=== PATIENT | female | born 1960 | race Caucasian/White ===

== ENCOUNTER 2024-11-13 14:12 | Emergency (ER) | payer OTHER ==
[2024-11-13] MEDS ORDERED: NA CHLORIDE 0.9% 500 ML ONE (14:58)
[2024-11-13 15:15] LABS: Absolute Basophils 0.1 K/uL (0-0.5); Absolute Eosinophils 0.1 K/uL (0-0.5); Absolute Lymphocytes (CBC) 2.1 K/uL (0.7-4.9); Absolute Monocytes 0.6 K/uL (0.1-1.3); Absolute Neutrophil 3.6 K/uL (1.8-8.0); Basophils % 0.8 % (0-1.3); Eosinophils % 1.7 % (0-4.4); Hematocrit 40.2 % (36.0-45.0); Hemoglobin 12.8 g/dL (12.0-15.0); Lymphocytes % 32.6 % (15.3-44.8); MCH 25.6 pg (27.0-35.0); MCHC 31.8 g/dL (32.0-36.0); MCV 80.3 fL (80-100); MPV 8.5 fL (7.6-11.3); Monocytes % 9.2 % (3.3-12.3); Neutrophils % 55.7 % (41.7-73.7); Platelets 275 thou/uL (152-406); RBC Red Blood Cell Count 5.01 M/uL (3.86-4.86); Red Cell Distribution Width 13.9 % (12.1-15.2)
[2024-11-13 15:34] LABS: Albumin 3.5 g/dL (3.4-5.0); Anion Gap 8.2 mEq/L (5.0-15.0); Bilirubin Total 0.2 mg/dL (0.2-1.0); Globulin 3.4 g/dL (2.3-3.5); Protein, Total 6.9 g/dL (6.4-8.2)
[2024-11-13 15:35] LABS: Potassium 4.2 mEq/L (3.5-5.1)
[2024-11-13 16:44] LABS: Sqamous Epithelial <5 /HPF (None Seen); Urine Bacteria None Seen /HPF (<20); Urine Bilirubin NEGATIVE (Negative); Urine Blood Negative (Negative); Urine Clarity Turbid (Clear); Urine Color Light-Yellow (Yellow); Urine Culture Reflex Order NOT NEEDED; Urine Glucose NEGATIVE (Negative); Urine Ketones NEGATIVE (Negative); Urine Micro Reflex YN NO BILL MICROSCOPIC; Urine Mucus Slight /HPF (None Seen); Urine Nitrite NEGATIVE (Negative); Urine Protein NEGATIVE (Negative); Urine RBC <5 /HPF (None Seen); Urine Urobilinogen Normal (Normal); Urine WBC <5 /HPF (<5)
--- NOTE | 2024-11-13 17:02 | ER ---
Nurse's Notes [facility] Name: Robbin Mc Age: 64 yrs Sex: Female : 1960 Arrival Date: 11/13/2024 Time: 14:12 Bed 8 Private MD: Diagnosis: Weakness Presentation: 11/13 14:15 Chief complaint: EMS states: Generalized weakness and intermittent dizziness with hb blurred vision x 1 months. Pt stated "my trigeminal neuralgia is kicking my ass and it hurts so bad I can't eat or drink anything and it is making me feel so weak and fatigued since my stroke in August." BP 148/60, HR 68, SpO2 96% on RA, BGL 130. Coronavirus screen: At this time, the client does not indicate any symptoms associated with coronavirus-19. Ebola Screen: No symptoms or risks identified at this time. Initial Sepsis Screen: Does the patient meet any 2 criteria? No. Patient's initial sepsis screen is negative. Does the patient have a suspected source of infection? No. Patient's initial sepsis screen is negative. Risk Assessment: Do you want to hurt yourself or someone else? Patient reports no desire to harm self or others. Onset of symptoms was August 2024. 14:15 Method Of Arrival: EMS: [facility] hb 14:15 Acuity: MACIEJ 3 hb Historical: - Allergies: 14:18 Adhesives; hb 14:18 IV Contrast; hb 14:18 Dilaudid; hb 14:18 Unknown ABX; hb - PMHx: 14:18 Migraine; Asthma; HTN; CVA; hb - Immunization history:: Adult Immunizations up to date. - Infectious Disease History:: Denies. - Social history:: Smoking status: Patient denies any tobacco usage or history of. Screenin:00 [facility] ED Fall Risk Assessment (Adult) History of falling in the last 3 months, ko1 including since admission No falls in past 3 months (0 pts) Confusion or Disorientation No (0 pts) Intoxicated or Sedated No (0 pts) Impaired Gait No (0 pts) Mobility Assist Device Used No (0 pt) Altered Elimination No (0 pt) Score/Fall Risk Level 0 - 2 = Low Risk Oriented to surroundings, Maintained a safe environment, Educated pt \\T\\ family on fall prevention, incl call for assistance when getting out of bed, Assessed \\T\\ reinforced patient's understanding of fall precautions, Hourly rounding (assess needs \\T\\ fall precautionary measures) done. Abuse screen: Denies threats or abuse. Denies injuries from another. Nutritional screening: No deficits noted. Tuberculosis screening: No symptoms or risk factors identified. Assessment: 15:00 General: Appears in no apparent distress. Behavior is cooperative, appropriate for age, ko1 anxious. Pain: Complains of pain in base of the skull and left base of the skull. Neuro: No deficits noted. Cardiovascular: No deficits noted. Respiratory: No deficits noted. GI: No deficits noted. : No deficits noted. EENT: No deficits noted. Derm: No deficits noted. Musculoskeletal: Reports pain in neck. Vital Signs: 14:15 BP 167 / 92; Pulse 69; Resp 16; Temp 98.2; Pulse Ox 97% on R/A; Weight 95.25 kg; Height hb 5 ft. 6 in. ; Pain 7/10; 17:30 BP 152 / 88; Pulse 74; Resp 16; Pulse Ox 99% ; ko1 14:15 Body Mass Index 33.89 (95.25 kg, 167.64 cm) hb 14:15 Pain Scale: Adult hb ED Course: 14:14 Patient arrived in ED. hb 14:14 Jonah Weber MD is Attending Physician. ec2 14:18 Triage completed. hb 14:20 Arm band placed on. hb 14:54 Babs Garcia, ROMAIN is Primary Nurse. ko1 15:00 Patient has correct armband on for positive identification. Allergy band placed. Bed in ko1 low position. Call light in reach. Side rails up X2. Provided Education on: meds. Pulse ox on. NIBP on. Door closed. Noise minimized. Lights dimmed. Pillow given. 15:00 Assisted to bathroom. ko1 15:07 Initial lab(s) drawn, by me, sent to lab. Inserted saline lock: 20 gauge in right zm antecubital area, using aseptic technique. Blood collected. Flushed with 10 mL NS. 15:07 CMP Sent. zm 15:08 CBC with Diff Sent. zm 16:30 UAM Sent. ko1 17:36 No provider procedures requiring assistance completed. IV discontinued, intact, ko1 bleeding controlled, No redness/swelling at site. Pressure dressing applied. Administered Medications: 15:10 Drug: NS 0.9% IV 500 ml 500 ml IV at 1 bolus once; to be given as a bolus over 30 ko1 minutes Volume: 500 ml; Route: IV; Rate: 1 bolus; Site: right antecubital; 17:21 Follow up: Response: No adverse reaction; IV Status: Completed infusion; IV Intake: ko1 500ml 17:24 Drug: Ketorolac IVP 15 mg IVP once Route: IVP; Site: right antecubital; ko1 17:37 Follow up: Response: No adverse reaction ko1 Medication: 15:00 VIS not applicable for this client. ko1 Intake: 17:21 IV: 500ml; Total: 500ml. ko1 Outcome: 17:01 Discharge ordered by . ec2 17:36 Discharged to home via wheelchair, with friend, ko1 17:36 Condition: stable 17:36 Discharge instructions given to patient, Instructed on discharge instructions, follow up and referral plans. Demonstrated understanding of instructions, follow-up care, 17:37 Patient left the ED. ko1 Signatures: Leonor Arceo, Rosario Alejo RN, Kathy, RN RN ko1 Jonah Weber MD MD ec2 Corrections: (The following items were deleted from the chart) 14:21 14:15 Chief complaint: EMS states: Generalized weakness and intermittent dizziness with hb blurred vision x 1 months. Pt stated "my trigeminal neuralgia is kicking my ass and it hurts so bad I can't eat or drink anything and it is making me feel so weak and fatigued. And I have been fatigued since my stroke in August." BP 148/60, HR 68, SpO2 96% on RA, BGL 130 hb 17:38 15:00 BP 152 / 88; Pulse 74bpm; Resp 16bpm; Pulse Ox 99%; ko1 ko1
--- NOTE | 2024-11-13 17:02 | EDPHYS ---
Physician Documentation [facility] Name: Robbin Mc Age: 64 yrs Sex: Female : 1960 Arrival Date: 11/13/2024 Time: 14:12 Bed 8 Private MD: ED Physician Jonah Weber HPI: 11/13 15:03 This 64 yrs old Female presents to ER via EMS with complaints of General ec2 Weakness. 15:03 Patient arrives today feeling unwell. Reports that she has been experiencing some ec2 generalized weakness. Reports decreased p.o. intake. Patient reports that she feels some lightheadedness as well.. Historical: - Allergies: 14:18 Adhesives; hb 14:18 IV Contrast; hb 14:18 Dilaudid; hb 14:18 Unknown ABX; hb - PMHx: 14:18 Migraine; Asthma; HTN; CVA; hb - Immunization history:: Adult Immunizations up to date. - Infectious Disease History:: Denies. - Social history:: Smoking status: Patient denies any tobacco usage or history of. ROS: 15:04 Constitutional: as per hpi ec2 Exam: 15:04 Constitutional: GEN: NAD Head: atraumatic Eyes: EOMI Ears: External ears are ec2 normal. CV: regular rate LUNGS: no respiratory distress ABD: non-distended SKIN: no evidence of rashes MSK: no evidence of trauma Vital Signs: 14:15 BP 167 / 92; Pulse 69; Resp 16; Temp 98.2; Pulse Ox 97% on R/A; Weight 95.25 kg; Height hb 5 ft. 6 in. ; Pain 7/10; 17:30 BP 152 / 88; Pulse 74; Resp 16; Pulse Ox 99% ; ko1 14:15 Body Mass Index 33.89 (95.25 kg, 167.64 cm) hb 14:15 Pain Scale: Adult hb MDM: 14:23 Medical Screening Exam initiated ec2 15:04 Data reviewed: vital signs, nurses notes. ED course: Patient arrives today for ec2 evaluation of generalized weakness and poor p.o. intake. Examination is unrevealing. Will obtain lab work and urine studies. Differential includes dehydration, electrolyte disturbances, anemia, UTI.. 11/13 14:23 Order name: CBC with Diff; Complete Time: 15:28 ec2 11/13 14:23 Order name: CMP; Complete Time: 15:39 ec2 11/13 14:24 Order name: UAM; Complete Time: 16:54 ec2 11/13 14:24 Order name: IV; Complete Time: 15:11 ec2 11/13 15:47 Order name: Misc. Order: urine please; Complete Time: 16:30 ec2 Administered Medications: 15:10 Drug: NS 0.9% IV 500 ml 500 ml IV at 1 bolus once; to be given as a bolus over 30 ko1 minutes Volume: 500 ml; Route: IV; Rate: 1 bolus; Site: right antecubital; 17:21 Follow up: Response: No adverse reaction; IV Status: Completed infusion; IV Intake: ko1 500ml 17:24 Drug: Ketorolac IVP 15 mg IVP once Route: IVP; Site: right antecubital; ko1 17:37 Follow up: Response: No adverse reaction ko1 Disposition Summary: 11/13/24 17:01 Discharge Ordered Notes: Location: Home ec2 Condition: Stable ec2 Diagnosis - Weakness ec2 Followup: ec2 - With: Private Physician - When: - Reason: Re-evaluation by your physician Discharge Instructions: - Discharge Summary Sheet ec2 - Weakness ec2 Forms: - Medication Reconciliation Form ec2 - Antibiotic Education ec2 - Prescription Opioid Use ec2 - Patient Portal Instructions ec2 - Leadership Thank You Letter ec2 Signatures: Dispatcher [employer] Leonor Lala RN RN hb Oliver, Kathy, RN RN ko1 Jonah Weber MD MD ec2
[2024-11-13] MEDS ORDERED: KETOROLAC 30 MG/ML INJ ONE (17:18)
[2024-11-13 17:46] VITALS: TEMP 98.2
[2024-11-13 17:56] VITALS: BP 152/88; O2SAT 99
== END 2024-11-13 17:37 | disposition home or self-care (01) ==
LOC: ER 14:12
DX: R53.1 Weakness (principal); I10 Essential (primary) hypertension; J45.909 Unspecified asthma, uncomplicated; G43.909 Migraine, unspecified, not intractable, without status migrainosus; Z86.73 Personal history of transient ischemic attack (TIA), and cerebral infarction without residual deficits; Z88.8 Allergy status to other drugs, medicaments and biological substances
CPT/HCPCS: 96361; 85025; 81001; 36415; 80053; 96374; 99284; J7040

== ENCOUNTER 2024-11-29 09:19 | Emergency (ER) | payer OTHER ==
[2024-11-29] MEDS ORDERED: MORPHINE 4 MG/ML SYR ONE (09:35)
[2024-11-29] MEDS ORDERED: ONDANSETRON 4 MG/2 ML VIAL ONE (09:35)
[2024-11-29 09:47] LABS: Absolute Basophils 0.1 K/uL (0-0.5); Absolute Eosinophils 0.1 K/uL (0-0.5); Absolute Monocytes 0.5 K/uL (0.1-1.3); Absolute Neutrophil 2.1 K/uL (1.8-8.0); Basophils % 1.2 % (0-1.3); Eosinophils % 3.1 % (0-4.4); Hematocrit 36.2 % (36.0-45.0); Hemoglobin 12.2 g/dL (12.0-15.0); Lymphocytes % 41.5 % (15.3-44.8); MCH 26.4 pg (27.0-35.0); MCHC 33.7 g/dL (32.0-36.0); MCV 78.3 fL (80-100); MPV 7.8 fL (7.6-11.3); Neutrophils % 43.2 % (41.7-73.7); Nucleated Red Blood Cells % 0.1 % (0-0); Platelets 295 thou/uL (152-406); RBC Red Blood Cell Count 4.62 M/uL (3.86-4.86)
[2024-11-29 10:09] LABS: Albumin 3.2 g/dL (3.4-5.0); Anion Gap 6.6 mEq/L (5.0-15.0); Bilirubin Total 0.3 mg/dL (0.2-1.0); Globulin 3.1 g/dL (2.3-3.5); Potassium 3.6 mEq/L (3.5-5.1); Protein, Total 6.3 g/dL (6.4-8.2)
--- NOTE | 2024-11-29 10:26 | RAD REPORT ---
EXAMINATION: Lumbar Spine 3 Views CLINICAL INDICATION: Back pain FINDINGS: Mild to moderate scoliosis involves the spine. Neuro stimulator device in place. Bones are osteoporotic. No acute fracture seen. Mild chronic deformity T12 vertebral body. Mild to moderate spondylosis.
[2024-11-29 11:17] LABS: Specific Gravity 1.019 (1.005-1.030); Sqamous Epithelial <5 /HPF (None Seen); Transitional Epithelial <5 /HPF (None Seen); Urine Bacteria <20 /HPF (<20); Urine Bilirubin NEGATIVE (Negative); Urine Blood Negative (Negative); Urine Clarity Clear (Clear); Urine Color Light-Yellow (Yellow); Urine Culture Reflex Order NOT NEEDED; Urine Glucose NEGATIVE (Negative); Urine Ketones NEGATIVE (Negative); Urine Microscopic Reflex YN ORDER UMIC; Urine Mucus Slight /HPF (None Seen); Urine Nitrite NEGATIVE (Negative); Urine Protein NEGATIVE (Negative); Urine RBC <5 /HPF (None Seen); Urine Urobilinogen Normal (Normal); Urine WBC <5 /HPF (<5); Urine pH 5.5 (5.0-7.0)
--- NOTE | 2024-11-29 11:20 | EDPHYS ---
Physician Documentation [facility] Name: Robbin Mc Age: 64 yrs Sex: Female : 1960 Arrival Date: 11/29/2024 Time: 09:19 Bed 8 Private MD: ED Physician Hao Barrera HPI: 11/29 09:26 This 64 yrs old Female presents to ER via EMS with complaints of Back Pain. dr5 09:26 The patient presents with pain that is chronic, with no known mechanism of injury. The dr5 symptoms are located in the low back. Onset: The symptoms/episode began/occurred and became worse this morning. Patient is a 64-year-old female with history of hypertension, asthma, CVA coming in with right lower back pain that worsened this morning. Patient reports she has had this pain for over a year and was [place] with [place] physician [place]. Patient states she is recently moved here and has not been able to find a doctor yet that was in network. Patient reports having device for urinary incontinence. Patient denies trauma, falls, urinary incontinence or bowel incontinence, numbness or tingling to bilateral legs, perirectal numbness. Patient received Toradol by EMS on arrival to has improved her pain. . Historical: - Allergies: 09:23 Adhesives; ko1 09:23 Dilaudid; ko1 09:23 IV contrast; ko1 09:23 unknown abx; ko1 - PMHx: 09:23 Asthma; CVA; HTN; Migraine; ko1 - Immunization history:: Adult Immunizations up to date. - Infectious Disease History:: Denies. - Social history:: Smoking status: Patient denies any tobacco usage or history of. ROS: 09:26 Constitutional: as per hpi dr5 Exam: 09:26 Constitutional: This is a well developed, well nourished patient who is awake, alert, dr5 and in no acute distress. Head/Face: Normocephalic, atraumatic. ENT: Nares patent. No nasal discharge, no septal abnormalities noted. Tympanic membranes are normal and external auditory canals are clear. Oropharynx with no redness, swelling, or masses, exudates, or evidence of obstruction, uvula midline. Mucous membranes moist. Neck: Trachea midline, no thyromegaly or masses palpated, and no cervical lymphadenopathy. Supple, full range of motion without nuchal rigidity, or vertebral point tenderness. No Meningismus. Chest/axilla: Normal chest wall appearance and motion. Nontender with no deformity. No lesions are appreciated. Cardiovascular: Regular rate and rhythm with a normal S1 and S2. Normal PMI, no JVD. No pulse deficits. Abdomen/GI: Soft, non-tender, non-distended Skin: Warm, dry with normal turgor. Normal color with no rashes, no lesions, and no evidence of cellulitis. 09:26 Back: pain, that is moderate, of the lumbar area, left low back and right low back, ROM is painful, normal spinal alignment noted, CVA tenderness, that is mild, is noted bilaterally, 11:31 Neuro: Exam negative for acute changes, dr5 Vital Signs: 09:22 BP 154 / 98; Pulse 74; Resp 15; Temp 97; Pulse Ox 98% ; ko1 10:32 BP 146 / 82; Pulse 62; Resp 15; Pulse Ox 98% ; ko1 11:22 BP 148 / 79; Pulse 71; Resp 15; Pulse Ox 100% ; ko1 MDM: 09:21 Medical Screening Exam initiated shabana 11:31 Differential diagnosis: Fracture sprain, Low Back Strain. Data reviewed: vital signs, dr5 nurses notes, lab test result(s), radiologic studies, plain films. Care significantly affected by the following chronic conditions: CVA, Asthma, HTN. Care significantly affected by the following Social Determinants of Health: Poor access to healthcare and/or lack of insurance, Poor access to transportation, Problems related to employment, Patient doesn't have vehicle.. Counseling: I had a detailed discussion with the patient and/or guardian regarding the historical points, exam findings, and any diagnostic results supporting the discharge/admit diagnosis, the presence of at least one elevated blood pressure reading (>120/80) during this emergency department visit, the need for outpatient follow up, for definitive care, a family practitioner, to return to the emergency department if symptoms worsen or persist or if there are any questions or concerns that arise at home. Response to treatment: the patient's symptoms have resolved after treatment. ED course: Patient is ambulating without difficulty. Patient states her pain is much better. beginning of UTI noted on UA and will give Keflex/Diflucan for UTI. Will give patient pain medication to take as needed. Patient has meloxicam at home to take as needed. Patient will call tomorrow and set up a primary care doctor appointment for further management. All questions answered. Patient does not have any complaints or pain at the time of discharge.. 11/29 09:25 Order name: CBC with Diff; Complete Time: 09:48 dr5 11/29 09:25 Order name: CMP; Complete Time: 10:10 dr5 11/29 09:25 Order name: Urinalysis w/ reflexes; Complete Time: 11:19 dr5 11/29 10:15 Order name: Lumbar Spine 3 Views; Complete Time: 10:27 EDMS Administered Medications: 09:41 Drug: Ondansetron IVP 4 mg IVP once; over 2 minutes Route: IVP; Site: left hand; ko1 09:56 Follow up: Response: No adverse reaction ko1 09:46 Drug: morphine IVP or IV 4 mg IVP once over 4 mins Route: IVP; Infused Over: 4 mins; ko1 Site: left hand; 10:01 Follow up: Response: No adverse reaction ko1 Disposition Summary: 11/29/24 11:20 Discharge Ordered Notes: Location: Home dr5 Condition: Stable dr5 Diagnosis - UTI/ Urinary tract infection, site not specified dr5 - Strain of muscle, fascia and tendon of lower back dr5 Followup: dr5 - With: Emergency Department - When: As needed - Reason: Worsening of condition Followup: dr5 - With: Private Physician - When: 1 - 2 days - Reason: Recheck today's complaints, Continuance of care, Re-evaluation by your physician Discharge Instructions: - Discharge Summary Sheet dr5 - Chronic Back Pain dr5 - Urinary Tract Infection, Adult dr5 Forms: - Medication Reconciliation Form dr5 - Antibiotic Education dr5 - Prescription Opioid Use dr5 - Patient Portal Instructions dr5 - Leadership Thank You Letter dr5 Prescriptions: - Cephalexin 500 mg Oral capsule - take 1 capsule ORAL route every 12 hours for 7 days; 14 capsule; Refills: 0, dr5 Product Selection Permitted - Fluconazole 150 mg Oral tablet - take 1 tablet ORAL route one time for 2 days; 2 tablet; Refills: 0, Product dr5 Selection Permitted - Tramadol 50 mg Oral tablet - take 1 tablet ORAL route every 8 hours As needed as needed; 12 tablet; Refills: dr5 0, Product Selection Permitted Addendum: 12/01/2024 15:34 Co-signature as Attending Physician, Hao Barrera MD I agree with the assessment and c rain plan of care. Signatures: Dispatcher [employer] EDHao Orourke MD MD cha Oliver, Kathy, ROMAIN RN ko1 Zac French, SKIVER SOCK LININGS-C SKIVER SOCK LININGS-Cdr5 Corrections: (The following items were deleted from the chart) 11/29 09:26 09:25 Lumbar Spine Single View+[id number] ordered. EDMS EDMS
--- NOTE | 2024-11-29 11:20 | ER ---
Nurse's Notes [facility] Name: Robbin Mc Age: 64 yrs Sex: Female : 1960 Arrival Date: 11/29/2024 Time: 09:19 Bed 8 Private MD: Diagnosis: UTI/ Urinary tract infection, site not specified;Strain of muscle, fascia and tendon of lower back Presentation: 11/29 09:22 Chief complaint: EMS states: called for back pain (chronic issue). Coronavirus screen: ko1 At this time, the client does not indicate any symptoms associated with coronavirus-19. Ebola Screen: No symptoms or risks identified at this time. Initial Sepsis Screen: Does the patient meet any 2 criteria? No. Patient's initial sepsis screen is negative. Does the patient have a suspected source of infection? No. Patient's initial sepsis screen is negative. Risk Assessment: Do you want to hurt yourself or someone else? Patient reports no desire to harm self or others. Onset of symptoms is unknown. Care prior to arrival: IV initiated. 20 GA, in the right hand. 09:22 Method Of Arrival: EMS: [facility] ko1 09:22 Acuity: MACIEJ 3 ko1 Triage Assessment: 09:23 General: Appears in no apparent distress. Behavior is calm, cooperative, appropriate ko1 for age. Pain: Complains of pain in back. EENT: No deficits noted. No signs and/or symptoms were reported regarding the EENT system. Neuro: No deficits noted. Cardiovascular: No deficits noted. Respiratory: No deficits noted. GI: No deficits noted. No signs and/or symptoms were reported involving the gastrointestinal system. : No deficits noted. No signs and/or symptoms were reported regarding the genitourinary system. Derm: No deficits noted. No signs and/or symptoms reported regarding the dermatologic system. Musculoskeletal: Circulation, motion, and sensation intact. Capillary refill < 3 seconds. Historical: - Allergies: : Adhesives; ko1 09: Dilaudid; ko1 :23 IV contrast; ko1 : unknown abx; ko1 - PMHx: : Asthma; CVA; HTN; Migraine; ko1 - Immunization history:: Adult Immunizations up to date. - Infectious Disease History:: Denies. - Social history:: Smoking status: Patient denies any tobacco usage or history of. Screenin:26 [facility] ED Fall Risk Assessment (Adult) History of falling in the last 3 months, ko1 including since admission No falls in past 3 months (0 pts) Confusion or Disorientation No (0 pts) Intoxicated or Sedated No (0 pts) Impaired Gait No (0 pts) Mobility Assist Device Used No (0 pt) Altered Elimination No (0 pt) Score/Fall Risk Level 0 - 2 = Low Risk Oriented to surroundings, Maintained a safe environment, Educated pt \T\ family on fall prevention, incl call for assistance when getting out of bed, Assessed \T\ reinforced patient's understanding of fall precautions, Provided non-skid footwear, Hourly rounding (assess needs \T\ fall precautionary measures) done. Abuse screen: Denies threats or abuse. Denies injuries from another. Nutritional screening: No deficits noted. Tuberculosis screening: No symptoms or risk factors identified. Assessment: :26 Reassessment: see triage note. Neuro: No deficits noted. Neuro: Moore ko1 Agitation-Sedation Scale (RASS): 0 - Alert and Calm. Neuro: Level of Consciousness is awake, alert, obeys commands, Oriented to person, place, time, situation, Appropriate for age. Vital Signs: 09:22 BP 154 / 98; Pulse 74; Resp 15; Temp 97; Pulse Ox 98% ; ko1 10:32 BP 146 / 82; Pulse 62; Resp 15; Pulse Ox 98% ; ko1 11:22 BP 148 / 79; Pulse 71; Resp 15; Pulse Ox 100% ; ko1 ED Course: 09:21 Patient arrived in ED. ko1 09:21 Hao Barrera MD is Attending Physician. [facility] 09:22 Babs Garcia, ROMAIN is Primary Nurse. ko1 09:23 Triage completed. ko1 09:23 Arm band placed on left wrist. Patient placed in an exam room, on a stretcher, on pulse ko1 oximetry, Patient notified of wait time. 09:24 Zac French FNP-C is PHCP. dr5 09:26 Patient has correct armband on for positive identification. Allergy band placed. Bed in ko1 low position. Call light in reach. Side rails up X2. Provided Education on: meds. Pulse ox on. NIBP on. Door closed. Noise minimized. Lights dimmed. Warm blanket given. Pillow given. 09:26 Maintain EMS IV. Dressing intact. Good blood return noted. Site clean \T\ dry. Gauge \T\ ko 1 site: 20g left hand. Flushed with 10 mL NS. 09:38 CMP Sent. ko1 09:38 CBC with Diff Sent. ko1 09:38 Initial lab(s) drawn, by me, sent to lab. ko1 10:18 Lumbar Spine 3 Views In Process Unspecified. EDMS 10:57 Urinalysis w/ reflexes Sent. ko1 10:58 No provider procedures requiring assistance completed. Urine collected: clean catch ko1 specimen, clear. 11:22 IV discontinued, intact, bleeding controlled, No redness/swelling at site. Pressure ko1 dressing applied. Administered Medications: 09:41 Drug: Ondansetron IVP 4 mg IVP once; over 2 minutes Route: IVP; Site: left hand; ko1 09:56 Follow up: Response: No adverse reaction ko1 09:46 Drug: morphine IVP or IV 4 mg IVP once over 4 mins Route: IVP; Infused Over: 4 mins; ko1 Site: left hand; 10:01 Follow up: Response: No adverse reaction ko1 Medication: 09:26 VIS not applicable for this client. ko1 Outcome: 11:20 Discharge ordered by . dr5 11:29 Discharged to home ambulatory, ko1 11:29 Condition: stable 11:29 Discharge instructions given to patient, Instructed on discharge instructions, follow up and referral plans. medication usage, Demonstrated understanding of instructions, follow-up care, medications, Prescriptions given X 3, 11:34 Patient left the ED. ko1 Signatures: Dispatcher [employer] EDHao Orourke MD MD cha Oliver, Kathy, RN RN ko1 Zac French, ANESTHESIA TECH-C ANESTHESIA TECH-Cdr5
[2024-11-29 11:40] VITALS: TEMP 97
[2024-11-29 11:42] VITALS: BP 148/79; O2SAT 100
== END 2024-11-29 11:34 | disposition home or self-care (01) ==
LOC: ER 09:19
DX: N39.0 Urinary tract infection, site not specified (principal); S39.012A Strain of muscle, fascia and tendon of lower back, initial encounter; I10 Essential (primary) hypertension; Z86.73 Personal history of transient ischemic attack (TIA), and cerebral infarction without residual deficits
CPT/HCPCS: 85025; 81001; 36415; 80053; 72100; 96375; 96374; 99284; J2405

== ENCOUNTER 2025-01-07 12:42 | Emergency (ER) | payer OTHER ==
[2025-01-07] MEDS ORDERED: MORPHINE 4 MG/ML SYR ONE (13:15)
[2025-01-07] MEDS ORDERED: KETOROLAC 30 MG/ML INJ ONE (13:15)
[2025-01-07] MEDS ORDERED: ONDANSETRON 4 MG/2 ML VIAL ONE (13:15)
[2025-01-07 13:23] LABS: Absolute Eosinophils 0.2 K/uL (0-0.5); Absolute Lymphocytes (CBC) 1.9 K/uL (0.7-4.9); Absolute Monocytes 0.6 K/uL (0.1-1.3); Absolute Neutrophil 3.1 K/uL (1.8-8.0); Basophils % 0.3 % (0-1.3); Eosinophils % 3.2 % (0-4.4); Hematocrit 40.5 % (36.0-45.0); Hemoglobin 13.9 g/dL (12.0-15.0); Lymphocytes % 32.4 % (15.3-44.8); MCH 26.5 pg (27.0-35.0); MCHC 34.3 g/dL (32.0-36.0); MCV 77.3 fL (80-100); MPV 8.4 fL (7.6-11.3); Monocytes % 10.5 % (3.3-12.3); Neutrophils % 53.6 % (41.7-73.7); Nucleated Red Blood Cells % 0.2 % (0-0); Platelets 291 thou/uL (152-406); RBC Red Blood Cell Count 5.23 M/uL (3.86-4.86); Red Cell Distribution Width 14.1 % (12.1-15.2)
[2025-01-07 13:34] LABS: Albumin 3.4 g/dL (3.4-5.0); Albumin/Globulin Ratio 0.9 (1.1-1.8); Anion Gap 6.6 mEq/L (5.0-15.0); Bilirubin Total 0.3 mg/dL (0.2-1.0); Globulin 3.6 g/dL (2.3-3.5); Potassium 3.6 mEq/L (3.5-5.1)
--- NOTE | 2025-01-07 14:31 | RAD REPORT ---
EXAMINATION: CT Abdomen Pelvis Wo Contrast CLINICAL INDICATION: Female, 64 years old. ABD PAIN TECHNIQUE: CT abdomen and pelvis was performed, without IV contrast, as per department protocol. Axia l, sagittal and coronal reconstructions were obtained. One or more of the following dose reduction techniques were used: Automated exposure control, adjustment of the mA and kV according to the patien t size, and iterative reconstruction. Unless otherwise specified, incidental findings do not require dedicated imaging follow-up. COMPARISON: 11/29/2024 lumbar spine radiographs. FINDINGS: The lack of intravenous contrast limits the sensitivity of this exam for evaluation of solid visceral organs, vascular structures, and retroperitoneum. LOWER CHEST: The visualized lung bases are clear. LIVER: Normal in size and contour. No focal lesion. BILIARY SYSTEM: Status post cholecystectomy. SPLEEN: Normal size. No focal lesion. PANCREAS: No mass, ductal dilation, or elida-pancreatic fluid. ADRENALS: Normal; no mass. KIDNEYS AND URETERS: Normal size and contour. No hydronephrosis. URINARY BLADDER: Normal contour. GASTROINTESTINAL TRACT: No evidence of bowel obstruction, significant free fluid, free air or abscess . Mild distal colonic diverticulosis without evidence of diverticulitis. APPENDIX: Normal appendix. LYMPH NODES: No lymphadenopathy. MUSCULOSKELETAL: Mild superior endplate compression deformities at T11 and T12, stable compared to th e prior radiographs. ADDITIONAL FINDINGS: Nonspecific mild fat stranding in the mesenteric root. This could be idiopathic or related to multiple possible etiologies, including but not limited to an upper abdominal infectious/inflammatory process, panniculitis, and can even be seen with neoplastic conditions such a s lymphoma. Right sacral nerve stimulator in place. IMPRESSION: No acute or concerning abnormalities in the abdomen or pelvis, with evaluation limited by lack of IV contrast. Mild superior endplate compression deformities at T11 and T12, of indeterminate age, but appears stab le compared to the prior radiographs.
--- NOTE | 2025-01-07 14:53 | EDPHYS ---
Physician Documentation [facility] Name: Robbin Mc Age: 64 yrs Sex: Female : 1960 Arrival Date: 01/07/2025 Time: 12:42 Bed 19 Private MD: ED Physician Jonah Weber HPI: 01/07 12:51 This 64 yrs old Female presents to ER via Unassigned with complaints of back ec2 pain, abd pain. 12:51 Patient arrives today for evaluation of abdominal pain and back pain. Reports several ec2 months of abdominal pain and back pain, reports worsened today. Denies any new complaints, denies falls injuries or trauma.. Historical: - Allergies: 13:00 Adhesives; db 13:00 IV contrast; db 13:00 Dilaudid; db 13:00 unknown abx; db - PMHx: 13:00 Asthma; HTN; Migraine; CVA; db - Immunization history:: Adult Immunizations unknown. - Infectious Disease History:: Denies. - Social history:: Smoking status: Patient denies any tobacco usage or history of. ROS: 12:51 Constitutional: as per hpi ec2 Exam: 12:51 Constitutional: GEN: NAD Head: atraumatic Eyes: EOMI Ears: External ears are ec2 normal. CV: regular rate LUNGS: no respiratory distress ABD: non-distended, soft not guarding, general ttp SKIN: no evidence of rashes MSK: no evidence of trauma, general low back ttp w/o deformity/crepitus or step offs Vital Signs: 12:49 BP 198 / 96; Pulse 81; Resp 18; Temp 98.2; Pulse Ox 95% ; Weight 105.69 kg; Height 5 db ft. 6 in. ; Pain 9/10; 13:00 BP 111 / 65; Pulse 56; Resp 18; Pulse Ox 98% on R/A; db 14:45 BP 186 / 89; Pulse 69; Resp 18; Pulse Ox 98% ; db 12:49 Body Mass Index 37.61 (105.69 kg, 167.64 cm) db 12:49 Pain Scale: Adult db MDM: 12:48 Medical Screening Exam initiated ec2 12:51 Data reviewed: vital signs, nurses notes. ED course: Patient arrives today for ec2 evaluation of back and abdominal pain. Examination yields abdominal and MSK findings as above. Will obtain lab work, CT imaging. Differential clues processes such as muscular strain, cholelithiasis, pancreatitis. 13:58 ED course: Lab work is remarkable for reassuring CBC, metabolic profile is ec2 nonactionable. Lipase that is within normal ranges. No evidence of renal dysfunction.. 14:33 ED course: CT abdomen pelvis shows no acute intra-abdominal pathology, shows likely ec2 chronic fractures. Will discharge home have patient follow-up with PCP.. 01/07 12:50 Order name: CBC with Diff; Complete Time: 13:47 ec2 01/07 12:50 Order name: CMP; Complete Time: 13:47 ec2 01/07 12:50 Order name: Lipase; Complete Time: 13:47 ec2 01/07 12:50 Order name: CT Abd/Pelvis - Without Contrast; Complete Time: 14:32 ec2 01/07 12:50 Order name: IV Saline Lock; Complete Time: 13:08 ec2 01/07 12:50 Order name: Labs collected and sent; Complete Time: 13:08 ec2 Administered Medications: 13:23 Drug: TORadol - Ketorolac IVP 15 mg IVP once Route: IVP; Site: left antecubital; iw 15:21 Follow up: Response: No adverse reaction db 13:23 Drug: Ondansetron IVP 4 mg IVP once; over 2 minutes Route: IVP; Site: left antecubital; iw 15:21 Follow up: Response: No adverse reaction db 13:23 Drug: morphine IVP or IV 4 mg IVP once over 4 mins Route: IVP; Infused Over: 4 mins; iw Site: left antecubital; 15:21 Follow up: Response: No adverse reaction db Disposition Summary: 01/07/25 14:52 Discharge Ordered Notes: Location: Home ec2 Condition: Stable ec2 Diagnosis - Low back pain ec2 Followup: ec2 - With: Private Physician - When: - Reason: Re-evaluation by your physician Discharge Instructions: - Discharge Summary Sheet ec2 - Chronic Back Pain ec2 Forms: - Medication Reconciliation Form ec2 - Antibiotic Education ec2 - Prescription Opioid Use ec2 - Patient Portal Instructions ec2 - Leadership Thank You Letter ec2 Prescriptions: - methocarbamol 500 mg Oral tablet - take 2 tablets ORAL route 4 times per day; 20 tablet; Refills: 0, Product ec2 Selection Permitted Signatures: Dispatcher [employer] Marielena Dorman RN RN iw Kaykay Vogel RN RN Jonah Junior MD MD ec2 Corrections: (The following items were deleted from the chart) 12:50 12:50 Abdomen Pelvis Wo Con+CT.RAD.BRZ ordered. EDMS EDMS
--- NOTE | 2025-01-07 14:53 | ER ---
Nurse's Notes [facility] Name: Robbin Mc Age: 64 yrs Sex: Female : 1960 Arrival Date: 01/07/2025 Time: 12:42 Bed 19 Private MD: Diagnosis: Low back pain Presentation: 01/07 12:49 Chief complaint: EMS states: BACK PAIN X 2 DAYS. TOOK 2 X 800 MG IBUPROFEN PRIOR TO db ARRIVAL. PAIN 10/10 THEN EMS GAVE 30 MG TORADOL PAIN DECREASED TO 9/10. Coronavirus screen: Client denies travel out of the [place] in the last 14 days. At this time, the client does not indicate any symptoms associated with coronavirus-19. Ebola Screen: Patient negative for fever greater than or equal to 101.5 degrees Fahrenheit, and additional compatible Ebola Virus Disease symptoms Patient denies exposure to infectious person. Patient denies travel to an Ebola-affected area in the 21 days before illness onset. No symptoms or risks identified at this time. Initial Sepsis Screen: Does the patient meet any 2 criteria? No. Patient's initial sepsis screen is negative. Does the patient have a suspected source of infection? No. Patient's initial sepsis screen is negative. Risk Assessment: Do you want to hurt yourself or someone else? Patient reports no desire to harm self or others. Onset of symptoms was January 06, 2025. Care prior to arrival: Medication(s) given: TORADOL 30 MG IV IV initiated. 20 GA, in the left antecubital area, Glucose check: 104. 12:49 Method Of Arrival: EMS: [facility] db 12:49 Acuity: MACIEJ 3 db Triage Assessment: 13:00 General: Appears in no apparent distress. comfortable, Behavior is calm, cooperative. db Pain: Complains of pain in back and abdomen. Neuro: Level of Consciousness is awake, alert, obeys commands, Oriented to person, place, time, situation. Respiratory: Airway is patent Respiratory effort is even, unlabored, Respiratory pattern is regular, symmetrical. Historical: - Allergies: 13:00 Adhesives; db 13:00 IV contrast; db 13:00 Dilaudid; db 13:00 unknown abx; db - PMHx: 13:00 Asthma; HTN; Migraine; CVA; db - Immunization history:: Adult Immunizations unknown. - Infectious Disease History:: Denies. - Social history:: Smoking status: Patient denies any tobacco usage or history of. Screenin:19 [facility] ED Fall Risk Assessment (Adult) History of falling in the last 3 months, db including since admission No falls in past 3 months (0 pts) Confusion or Disorientation No (0 pts) Intoxicated or Sedated No (0 pts) Impaired Gait No (0 pts) Mobility Assist Device Used No (0 pt) Altered Elimination No (0 pt) Score/Fall Risk Level 0 - 2 = Low Risk Oriented to surroundings, Maintained a safe environment. Abuse screen: Denies threats or abuse. Denies injuries from another. Nutritional screening: No deficits noted. Tuberculosis screening: No symptoms or risk factors identified. Assessment: 13:06 Reassessment: Patient appears in no apparent distress at this time. Patient and/or db family updated on plan of care and expected duration. Pain level reassessed. Patient is alert, oriented x 3, equal unlabored respirations, skin warm/dry/pink. SEE TRIAGE FOR INITIAL ASSESSMENT. 13:53 Reassessment: Patient appears in no apparent distress at this time. pt requesting light iw off. 15:19 Reassessment: Patient appears in no apparent distress at this time. Patient and/or db family updated on plan of care and expected duration. Pain level reassessed. Patient is alert, oriented x 3, equal unlabored respirations, skin warm/dry/pink. Patient states feeling better. Patient states symptoms have improved. General: Appears in no apparent distress. comfortable, Behavior is calm, cooperative. Neuro: Level of Consciousness is awake, alert, obeys commands, Oriented to person, place, time, situation. Respiratory: Airway is patent Respiratory effort is even, unlabored, Respiratory pattern is regular, symmetrical. Vital Signs: 12:49 BP 198 / 96; Pulse 81; Resp 18; Temp 98.2; Pulse Ox 95% ; Weight 105.69 kg; Height 5 db ft. 6 in. ; Pain 9/10; 13:00 BP 111 / 65; Pulse 56; Resp 18; Pulse Ox 98% on R/A; db 14:45 BP 186 / 89; Pulse 69; Resp 18; Pulse Ox 98% ; db 12:49 Body Mass Index 37.61 (105.69 kg, 167.64 cm) db 12:49 Pain Scale: Adult db ED Course: 12:48 Patient arrived in ED. ec2 12:48 Jonah Weber MD is Attending Physician. ec2 12:53 Kaykay Vogel, ROMAIN is Primary Nurse. db 13:00 Triage completed. db 13:00 Arm band placed on Patient placed in an exam room. db 13:[address] via stretcher. db 13:03 Maintain EMS IV. Dressing intact. Good blood return noted. Site clean \T\ dry. Gauge \T\ db site: 20 G LAC. 13:10 CT Abd/Pelvis - Without Contrast In Process Unspecified. EDMS 15:19 Patient has correct armband on for positive identification. Bed in low position. Call db light in reach. Side rails up X 1. Provided Education on: DISCHARGE AND FOLLOWUP. Pulse ox on. NIBP on. Warm blanket given. Pillow given. 15:19 No provider procedures requiring assistance completed. IV discontinued, intact, db bleeding controlled, No redness/swelling at site. Administered Medications: 13:23 Drug: TORadol - Ketorolac IVP 15 mg IVP once Route: IVP; Site: left antecubital; iw 15:21 Follow up: Response: No adverse reaction db 13:23 Drug: Ondansetron IVP 4 mg IVP once; over 2 minutes Route: IVP; Site: left antecubital; iw 15:21 Follow up: Response: No adverse reaction db 13:23 Drug: morphine IVP or IV 4 mg IVP once over 4 mins Route: IVP; Infused Over: 4 mins; iw Site: left antecubital; 15:21 Follow up: Response: No adverse reaction db Medication: 15:19 VIS not applicable for this client. db Outcome: 14:52 Discharge ordered by . ec2 15:19 Discharged to home ambulatory, db 15:19 Condition: stable 15:19 Discharge instructions given to patient, Instructed on discharge instructions, follow up and referral plans. Prescriptions given X 1, 15:21 Patient left the ED. db Signatures: Dispatcher [employer] Marielena Dorman, ROMAIN HOYOS iw Kaykay Vogel, ROMAIN RN db Jonah Weber MD MD ec2
[2025-01-07 15:47] VITALS: TEMP 98.2
[2025-01-07 15:48] VITALS: O2SAT 98
[2025-01-07 15:49] VITALS: BP 186/89
== END 2025-01-07 15:21 | disposition home or self-care (01) ==
LOC: ER 12:42
DX: M54.50 Low back pain, unspecified (principal); I10 Essential (primary) hypertension; J45.909 Unspecified asthma, uncomplicated; Z86.73 Personal history of transient ischemic attack (TIA), and cerebral infarction without residual deficits; Z88.5 Allergy status to narcotic agent; Z88.8 Allergy status to other drugs, medicaments and biological substances; Z91.041 Radiographic dye allergy status; Z91.09 Other allergy status, other than to drugs and biological substances
CPT/HCPCS: 85025; 36415; 83690; 80053; 74176; J2405

== ENCOUNTER 2025-04-06 08:02 | Day surgery (SDC) | payer OTHER ==
[2025-04-06 09:13] LABS: MPV 8.2 fL (7.6-11.3); Platelets 269 thou/uL (152-406)
[2025-04-06 09:19] LABS: PT Prothrombin Time 11.2 SECONDS (10-13.0); PTT, Activated Partial Thromb 30.3 SECONDS (27.2-37.4); Protime INR 0.98
[2025-04-06 11:00] VITALS: BP 159/92; TEMP 98.2; O2SAT 99
== END 2025-04-06 10:02 | disposition home or self-care (01) ==
LOC: DS 08:02
PROVIDERS: ATTEND Orthopaedic Surgery
DX: M48.062 Spinal stenosis, lumbar region with neurogenic claudication (principal); Z53.09 Procedure and treatment not carried out because of other contraindication
CPT/HCPCS: 36415; 85049; 85610; 85730

== ENCOUNTER 2025-07-06 10:47 | Emergency (ER) | payer OTHER ==
--- NOTE | 2025-07-06 12:05 | EDPHYS ---
Physician Documentation [facility] Name: Robbin Mc Age: 65 yrs Sex: Female : 1960 Arrival Date: 07/06/2025 Time: 10:47 Bed 10 Private MD: ED Physician Sharmaine Joseph HPI: 07/06 12:02 This 65 yrs old Female presents to ER via Ambulatory with complaints of Mouth Problem. sp3 12:02 65-year-old female with history of asthma, hypertension, migraine, trigeminal neuralgia sp3 now presents to the ED with chief complaint right dental pain in the maxilla and mandible both. She has seen a dentist and she was told she has a fractured tooth and also needs root canal. She states she cannot afford that after going to the special education curriculum specialist. She states she has a hard time eating and is requesting dental care. Review of systems negative for neck pain, chest pain, shortness of breath, abdominal pain, bleeding, or any other signs or symptoms on ROS at this time.. Historical: - Allergies: 10:59 Adhesives; hb 10:59 Dilaudid; hb 10:59 IV contrast; hb 10:59 unknown abx; hb - PMHx: 10:59 Asthma; CVA; HTN; Migraine; hb - Immunization history:: Adult Immunizations up to date. - Infectious Disease History:: Denies. - Social history:: Smoking status: Patient denies any tobacco usage or history of. ROS: 12:03 Constitutional: Negative for fever, chills, and weight loss, Eyes: Negative for injury, sp3 pain, redness, and discharge, Neck: Negative for injury, pain, and swelling, Cardiovascular: Negative for chest pain, palpitations, and edema, Respiratory: Negative for shortness of breath, cough, wheezing, and pleuritic chest pain, Abdomen/GI: Negative for abdominal pain, nausea, vomiting, diarrhea, and constipation, Back: Negative for injury and pain, MS/Extremity: Negative for injury and deformity, Skin: Negative for injury, rash, and discoloration, Neuro: Negative for headache, weakness, numbness, tingling, and seizure, Psych: Negative for depression, anxiety, suicide ideation, homicidal ideation, and hallucinations, Allergy/Immunology: Negative for hives, rash, and allergies, Endocrine: Negative for neck swelling, polydipsia, polyuria, polyphagia, and marked weight changes, Hematologic/Lymphatic: Negative for swollen nodes, abnormal bleeding, and unusual bruising, 12:03 All other systems are negative, Exam: 12:03 Constitutional: This is a well developed, well nourished patient who is awake, alert, sp3 and in no acute distress. Head/Face: Normocephalic, atraumatic. Eyes: Pupils equal round and reactive to light, extra-ocular motions intact. Lids and lashes normal. Conjunctiva and sclera are non-icteric and not injected. Cornea within normal limits. Periorbital areas with no swelling, redness, or edema. Neck: Trachea midline, no thyromegaly or masses palpated, and no cervical lymphadenopathy. Supple, full range of motion without nuchal rigidity, or vertebral point tenderness. No Meningismus. Chest/axilla: Normal chest wall appearance and motion. Nontender with no deformity. No lesions are appreciated. Cardiovascular: Regular rate and rhythm with a normal S1 and S2. No gallops, murmurs, or rubs. Normal PMI, no JVD. No pulse deficits. Respiratory: Lungs have equal breath sounds bilaterally, clear to auscultation and percussion. No rales, rhonchi or wheezes noted. No increased work of breathing, no retractions or nasal flaring. Abdomen/GI: Soft, non-tender, with normal bowel sounds. No distension or tympany. No guarding or rebound. No evidence of tenderness throughout. Back: No spinal tenderness. No costovertebral tenderness. Full range of motion. Skin: Warm, dry with normal turgor. Normal color with no rashes, no lesions, and no evidence of cellulitis. MS/ Extremity: Pulses equal, no cyanosis. Neurovascular intact. Full, normal range of motion. Neuro: Awake and alert, GCS 15, oriented to person, place, time, and situation. Cranial nerves II-XII grossly intact. Motor strength 5/5 in all extremities. Sensory grossly intact. Cerebellar exam normal. Normal gait. 12:03 ENT: Pain to palpation of poor dentition on maxillary and mandible teeth bilaterally. Right tooth pain to percussion multiple.. Vital Signs: 10:57 BP 136 / 73; Pulse 75; Resp 16; Temp 97.8(TE); Pulse Ox 96% on R/A; Pain 10/10; hb 12:16 Resp 16; Weight 93.89 kg; ll1 10:57 Pain Scale: Adult hb MDM: 11:03 Medical Screening Exam initiated sp3 12:04 Data reviewed: vital signs, nurses notes. ED course: 65-year-old female with dental sp3 pain. I am at highly suspicious of infection. There is no swelling. Patient needs a root canal secondary to dental fracture which is a known entity. I have informed her that we do not do dental work in the ED and referred her to the free clinic in [place] as well as options in [place]. Will prescribe diclofenac for symptomatic pain control to bridge her symptoms.. Administered Medications: No medications were administered Disposition Summary: 07/06/25 12:05 Discharge Ordered Notes: Location: Home sp3 Condition: Stable sp3 Diagnosis - Dental pain sp3 Followup: sp3 - With: Private Physician - When: Upon discharge from the Emergency Department - Reason: Continuance of care Discharge Instructions: - Discharge Summary Sheet sp3 - Dental Pain sp3 Forms: - Medication Reconciliation Form sp3 - Antibiotic Education sp3 - Prescription Opioid Use sp3 - Patient Portal Instructions sp3 - Leadership Thank You Letter sp3 Prescriptions: - Diclofenac Sodium 75 mg Oral Tablet Sustained Release - take 1 tablet ORAL route 2 times per day; 30 tablet; Refills: 0, Product sp3 Selection Permitted Signatures: Leonor Arceo, RN RN Sharmaine Joseph MD MD sp3
--- NOTE | 2025-07-06 12:05 | ER ---
Nurse's Notes [facility] Name: Robbin Mc Age: 65 yrs Sex: Female : 1960 Arrival Date: 07/06/2025 Time: 10:47 Bed 10 Private MD: Diagnosis: Dental pain Presentation: 07/06 10:57 Chief complaint: Patient states: "I need a root canal but I can't afford it, it hurts hb so bad I can't eat." Taking amoxicillin. Coronavirus screen: At this time, the client does not indicate any symptoms associated with coronavirus-19. Ebola Screen: No symptoms or risks identified at this time. Initial Sepsis Screen: Does the patient meet any 2 criteria? No. Patient's initial sepsis screen is negative. Does the patient have a suspected source of infection? No. Patient's initial sepsis screen is negative. Risk Assessment: Do you want to hurt yourself or someone else? Patient reports no desire to harm self or others. Onset of symptoms was July 06, 2025. 10:57 Method Of Arrival: Ambulatory hb 10:57 Acuity: MACIEJ 4 hb Triage Assessment: 10:59 General: Appears uncomfortable, Behavior is calm, cooperative, appropriate for age. ll1 Pain: Complains of pain in jaw Quality of pain is described as aching. EENT: Reports pain since tooth and jaw. Historical: - Allergies: 10:59 Adhesives; hb 10:59 Dilaudid; hb 10:59 IV contrast; hb 10:59 unknown abx; hb - PMHx: 10:59 Asthma; CVA; HTN; Migraine; hb - Immunization history:: Adult Immunizations up to date. - Infectious Disease History:: Denies. - Social history:: Smoking status: Patient denies any tobacco usage or history of. Screenin:13 [facility] ED Fall Risk Assessment (Adult) History of falling in the last 3 months, ll1 including since admission No falls in past 3 months (0 pts) Confusion or Disorientation No (0 pts) Intoxicated or Sedated No (0 pts) Impaired Gait No (0 pts) Mobility Assist Device Used No (0 pt) Altered Elimination No (0 pt) Score/Fall Risk Level 0 - 2 = Low Risk Maintained a safe environment, Hourly rounding (assess needs \\T\\ fall precautionary measures) done. Abuse screen: Denies threats or abuse. Nutritional screening: No deficits noted. Tuberculosis screening: No symptoms or risk factors identified. Assessment: 11:30 Reassessment: No changes from previously documented assessment. Patient and/or family ll1 updated on plan of care and expected duration. Pain level reassessed. Patient is alert, oriented x 3, equal unlabored respirations, skin warm/dry/pink. 12:16 Reassessment: No changes from previously documented assessment. Patient and/or family ll1 updated on plan of care and expected duration. Pain level reassessed. Vital Signs: 10:57 BP 136 / 73; Pulse 75; Resp 16; Temp 97.8(TE); Pulse Ox 96% on R/A; Pain 10/10; hb 12:16 Resp 16; Weight 93.89 kg; ll1 10:57 Pain Scale: Adult hb ED Course: 10:51 Patient arrived in ED. mr 10:59 Triage completed. hb 10:59 Arm band placed on. hb 11:03 Sharmaine Joseph MD is Attending Physician. sp3 11:11 Scott Alegria RN is Primary Nurse. ll1 11:13 Patient has correct armband on for positive identification. Provided Education on: ER ll1 procedures and process. 11:28 Warm blanket given. ll1 12:16 No provider procedures requiring assistance completed. Patient did not have IV access ll1 during this emergency room visit. Administered Medications: No medications were administered Medication: 11:14 VIS not applicable for this client. ll1 Outcome: 12:05 Discharge ordered by MD. sp3 12:16 Discharged to home ambulatory, ll1 12:16 Condition: stable 12:16 Discharge instructions given to patient, Instructed on discharge instructions, follow up and referral plans. medication usage, Demonstrated understanding of instructions, follow-up care, medications, Prescriptions given X 1, 12:17 Patient left the ED. ll1 Signatures: Jordana Graves, Reg Reg ArceoLeonor RN RN Scott Alegria RN RN ll1 Sharmaine Joseph MD MD sp3 Corrections: (The following items were deleted from the chart) 11:00 10:57 Chief complaint: Patient states: "I need a root canal but I can't afford it, it hb hurts so bad I can't eat." hb 11:13 10:59 EENT: Reports pain ll1 ll1
[2025-07-06 12:52] VITALS: BP 136/73; TEMP 97.8; O2SAT 96
== END 2025-07-06 12:17 | disposition home or self-care (01) ==
LOC: ER 10:47
DX: K08.89 Other specified disorders of teeth and supporting structures (principal)
CPT/HCPCS: 99283